=== PATIENT | male | born 1990 | race African-American/Black ===

== ENCOUNTER 2021-03-08 11:47 | Emergency (ER) | payer SELFPAY ==
[~2021-03-08] VITALS: Ht 182.9 cm; Wt 71.0 kg
[2021-03-08 11:51] VITALS: BP 132/78
== END 2021-03-08 11:57 | disposition left against medical advice (07) ==
LOC: ER 11:47
DX: R51.9 Headache, unspecified (principal); V43.52XA Car driver injured in collision with other type car in traffic accident, initial encounter; Y93.89 Activity, other specified; Y92.488 Other paved roadways as the place of occurrence of the external cause
CPT/HCPCS: 99283